=== PATIENT | female | born 1945 | race Caucasian/White ===

== ENCOUNTER 2020-11-04 10:30 | Emergency (ER) | payer OTHER, MEDICAID ==
[~2020-11-04] VITALS: Ht 162.6 cm; Wt 77.1 kg
[2020-11-04 10:30] VITALS: BP_SYST 140
[2020-11-04] MEDS ORDERED: GASTROGRAFIN 120 ML ONE (10:43)
[2020-11-04 13:13] VITALS: BP_SYST 140
== END 2020-11-04 13:13 | disposition home or self-care (01) ==
LOC: SED 10:30
DX: K94.23 Gastrostomy malfunction (principal)
CPT/HCPCS: 74240-TC; 99285; Q9963

== ENCOUNTER 2020-11-12 12:57 | Emergency (ER) | payer OTHER, MEDICAID ==
[~2020-11-12] VITALS: Ht 160 cm; Wt 59.0 kg
[2020-11-12 13:09] VITALS: BP_SYST 139
[2020-11-12] MEDS ORDERED: GASTROGRAFIN 120 ML ONE (14:12)
[2020-11-12 17:39] VITALS: BP_SYST 134
== END 2020-11-12 17:40 | disposition home or self-care (01) ==
LOC: SED 12:57
DX: K94.20 Gastrostomy complication, unspecified (principal); F03.90 Unspecified dementia, unspecified severity, without behavioral disturbance, psychotic disturbance, mood disturbance, and anxiety
CPT/HCPCS: 43762; 74240; 99284; Q9963; 99283

== ENCOUNTER 2020-11-17 17:46 | Emergency (ER) | payer OTHER, MEDICAID ==
[~2020-11-17] VITALS: Ht 165.1 cm; Wt 54.4 kg
[2020-11-17 17:46] VITALS: BP_SYST 125
[2020-11-17] MEDS ORDERED: GASTROGRAFIN 120 ML ONE (18:29)
[2020-11-17 19:49] VITALS: BP_SYST 133
== END 2020-11-17 19:30 ==
LOC: SED 17:46
DX: K94.20 Gastrostomy complication, unspecified (principal); F03.90 Unspecified dementia, unspecified severity, without behavioral disturbance, psychotic disturbance, mood disturbance, and anxiety
CPT/HCPCS: 43762; 74240; 99284; Q9963

== ENCOUNTER 2020-11-21 21:43 | Emergency (ER) | payer OTHER, MEDICAID ==
[~2020-11-21] VITALS: Ht 154.9 cm; Wt 61.2 kg
[2020-11-21 21:57] VITALS: BP_SYST 128
[2020-11-21] MEDS ORDERED: GASTROGRAFIN 120 ML ONE (22:08)
[2020-11-21 22:33] VITALS: BP_SYST 128
== END 2020-11-21 22:33 | disposition home or self-care (01) ==
LOC: SED 21:43
DX: K94.29 Other complications of gastrostomy (principal)
CPT/HCPCS: 43762; 74240; 99284; Q9963

== ENCOUNTER 2020-11-22 13:18 | Emergency (ER) | payer OTHER, MEDICAID ==
[~2020-11-22] VITALS: Ht 160 cm; Wt 61.2 kg
[2020-11-22 13:20] VITALS: BP_SYST 106
--- NOTE | 2020-11-22 14:15 | NUR ---
RECEIVED AND IN ROOM, PT CALM, COOPERATIVE, RESP UNLABORED
[2020-11-22] MEDS ORDERED: GASTROGRAFIN 120 ML ONE (14:16)
--- NOTE | 2020-11-22 14:23 | NUR ---
X-RAY AT BEDSIDE TO CONFIRM PLACEMENT OF G-TUBE
--- NOTE | 2020-11-22 14:38 | NUR ---
CALM, ALERT, NO DISTRESS, RESP UNLABORED, SKIN WARM AND DRY
[2020-11-22 16:07] VITALS: BP_SYST 106
--- NOTE | 2020-11-22 16:20 | NUR ---
Patient given written and verbal discharge instructions and verbalizes understanding. ER MD discussed with patient the results and treatment provided. Patient in stable condition. ID arm band removed. Patient educated on pain management and to follow up with PMD. Pain Scale Opportunity for questions provided and answered. SBAR TO RN AT [facility]
== END 2020-11-22 16:07 | disposition home or self-care (01) ==
LOC: SED 13:18
DX: K94.29 Other complications of gastrostomy (principal)
CPT/HCPCS: 74240; 99283; Q9963

== ENCOUNTER 2020-12-14 10:04 | Emergency (ER) | payer OTHER, MEDICAID ==
--- NOTE | 2020-12-14 10:04 | NUR ---
BROUGHT IN BY [facility], PLACED IN BED #5 AND TRIAGED. REPORT GIVEN TO JEANETTE
[2020-12-14 10:05] VITALS: BP_SYST 110
--- NOTE | 2020-12-14 10:10 | NUR ---
PT PHYLLIS FROM [facility] FOR G-TUBE REINSERTION. PER FACILITY PT PULLED OUT G-TUBE THIS AM, STAFF PLACED CATES CATH TO MAINTAIN PATENCY. PT ARRIVES AWAKE ALERT AND MUMBLES INCOHERANTLY. V/S STABLE UPON ARRIVAL
--- NOTE | 2020-12-14 10:30 | NUR ---
AT THE BEDSIDE WITH ER DR. BERNAL FOR EXAMINATION AND G-TUBE REPLACEMENT, PT TOLERATED WELL
[2020-12-14] MEDS ORDERED: GASTROGRAFIN 120 ML ONE (10:51)
--- NOTE | 2020-12-14 10:58 | NUR ---
PT HAD LARGE SOFT BROWN BM. PT CLEANED AND LINENS CHANGED
--- NOTE | 2020-12-14 11:02 | NUR ---
PORTABLE X-RAY AT THE BEDSIDE
[2020-12-14] MEDS ORDERED: DIPHENHYDRAMINE INJ 50 MG/ML VIAL IM ONE (11:30)
--- NOTE | 2020-12-14 11:40 | NUR ---
REPORT GIVEN TO ALEX AT [facility], TRANSPORTATION IS HERE.
--- NOTE | 2020-12-14 11:41 | NUR ---
REPORT GIVEN TO ALEX @ [facility]
[2020-12-14 11:42] VITALS: BP_SYST 110
--- NOTE | 2020-12-14 11:42 | NUR ---
Patient given written and verbal discharge instructions and verbalizes understanding. ER MD discussed with patient the results and treatment provided. Patient in stable condition. ID arm band removed. NO Rx given. Patient educated on pain management and to follow up with PMD. Pain Scale 0/10. Opportunity for questions provided and answered. Medication side effect fact sheet provided.
[2020-12-18] MEDS ORDERED: QUET200T GT ×2 (15:51)
[2020-12-18] MEDS ORDERED: BISA5TAB10 PO (15:51)
[2020-12-18] MEDS ORDERED: FLEPED RC (15:51)
[2020-12-18] MEDS ORDERED: IPRA4AER INH (15:51)
[2020-12-18] MEDS ORDERED: HYDR-4280 PO (15:51)
[2020-12-18] MEDS ORDERED: PRED20TA GT (15:51)
[2020-12-18] MEDS ORDERED: LIP40 GT (15:51)
== END 2020-12-14 11:42 | disposition home or self-care (01) ==
LOC: SED 10:04
DX: K94.19 Other complications of enterostomy (principal); I10 Essential (primary) hypertension; J45.909 Unspecified asthma, uncomplicated
CPT/HCPCS: 74240-TC; 99284; Q9963